=== PATIENT | male | born 2000 | race Caucasian/White ===

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

== ENCOUNTER 2025-01-25 17:11 | Emergency (ER) | payer BC, OTHER ==
[~2025-01-25] VITALS: Ht 190.5 cm; Wt 106.6 kg
[2025-01-25] MEDS ORDERED: Ketorolac Tromethamine 15mg Vial IV ONE ×2 (17:25→19:55)
[2025-01-25 17:45] LABS: Source, Urine Clean Catch
[2025-01-25 17:50] LABS: Appearance, Urine Clear (Clear); Blood, Urine 4+ (Neg); Color, Urine Yellow (P-Yellow); Glucose Qualitative, Urine Neg (Neg); Ketones, Urine 4+ (Neg); Leukocyte Esterase, Urine 2+ (Neg); Nitrite, Urine Pos (Neg); Protein, Urine 3+ (Neg); Urobilinogen, Urine 2+ (Normal)
[2025-01-25 17:51] LABS: Bilirubin, Urine 2+ (Neg)
[2025-01-25 17:53] LABS: Bacteria Many /hpf; Mucus Heavy (0-Heavy); Squamous Epithelial Cells Rare /hpf (Few)
[2025-01-25 18:30] LABS: BASOPHILS ABSOLUTE AUTO 0.04 K/mm3 (0.00-0.23); BASOPHILS PERCENT AUTO 0 % (0-2); EOSINOPHILS ABSOLUTE AUTO 0.02 K/mm3 (0.00-0.68); EOSINOPHILS PERCENT AUTO 0 % (0-6); Hematocrit 40.9 % (37.0-53.0); Hemoglobin 15.2 g/dL (13.5-17.5); IMMATURE GRAN ABSOLUTE AUTO 0.07 K/mm3 (0.00-0.10); IMMATURE GRAN PERCENT AUTO 0 % (0-1); LYMPHOCYTES ABSOLUTE AUTO 1.72 K/mm3 (0.84-5.20); LYMPHOCYTES PERCENT AUTO 11 % (21-46); MONOCYTES ABSOLUTE AUTO 1.18 K/mm3 (0.16-1.47); MONOCYTES PERCENT AUTO 7 % (4-13); Mean Corpuscular HGB 31.1 pg (26.0-34.0); Mean Corpuscular HGB Conc 37.2 g/dL (31.5-36.5); Mean Corpuscular Volume 84 fL (80-100); Mean Platelet Volume 10.3 fL (9.1-12.4); NEUTROPHILS ABSOLUTE AUTO 12.93 K/mm3 (1.96-9.15); NEUTROPHILS PERCENT AUTO 81 % (41-73); Platelet Count 272 K/mm3 (150-400); RDW Coefficient Variation 12.9 % (11.7-14.2); RDW Standard Deviation 39.3 fL (35.1-46.3); Red Blood Cell Count 4.88 M/mm3 (4.30-5.90); White Blood Cell Count 15.96 K/mm3 (4.00-11.30)
[2025-01-25 19:14] LABS: Albumin, Blood 4.4 g/dL (3.4-5.0); Albumin/Globulin Ratio 1.3 (0.8-1.8); Bilirubin, Total 0.9 mg/dL (0.1-1.0); Bun/Creatinine Ratio 9.8 (12.0-20.0); Calcium, Blood 9.2 mg/dL (8.5-10.1); Creatinine, Blood 1.02 mg/dL (0.60-1.20); Globulin, Blood 3.3 g/dL (2.2-4.0); Potassium, Blood 2.8 mmol/L (3.5-5.5); Total Protein, Blood 7.7 g/dL (6.4-8.2)
[2025-01-25] MEDS ORDERED: CefTRIAXone Sodium 1,000 MG in NS 100 ML IV ONE (19:55)
[2025-01-25 20:00] VITALS: BP 119/71
[2025-01-25] MEDS ORDERED: IBUP600 PO (20:49)
[2025-01-25] MEDS ORDERED: ACET500 PO (20:49)
[2025-01-25] MEDS ORDERED: CEPH500 PO (20:49)
== END 2025-01-25 21:17 | disposition home or self-care (01) ==
LOC: ER 17:11
PROVIDERS: Student in an Organized Health Care Education/Training Program
DX: N13.6 Pyonephrosis (principal)
CPT/HCPCS: 74176; 80053; 81001; 85025; 87086; 96365; 96375; 99284-25; J0696; J1885